=== PATIENT | male | born 1970 | race Two or more races ===

== ENCOUNTER 2024-11-06 21:39 | Emergency (ER) | payer MEDICAID, SELFPAY ==
[2024-11-06 21:40] VITALS: BMI 29.0
--- NOTE | 2024-11-06 22:25 | XR_ITS ---
Examination: Hand, left 3 views Technique: Hand AP, oblique, lateral 3 views Date and time of exam: November 06, 2024 10:30 PM Indications: Patient fell off a ladder 3 days ago with injury to hand, hand pain Findings: Comminuted fractures mid and proximal portion proximal phalanx fourth digit No major offset No dislocation Impression: Acute fractures proximal phalanx fourth digit
--- NOTE | 2024-11-06 23:17 | PD.EDHAND ---
Upper Extremity Injury RME/HPI General Chief Complaint: Hand/Wrist Problems Stated Complaint: L HAND INJURY Time Seen by Provider: 11/06/24 22:20 Arrival date/time: 11/06/24 21:39 This is a case of 54-year-old male with no medical history came in in the emergency room due to left hand pain and fourth digit left hand pain for 2 days history of present illness started last Thursday patient accidentally fell 3 feet tall in a ladder and landed on his left hand sustaining pain and swelling no other injury noted denies any head neck chest or abdominal injury no loss of consciousness Limitations: no limitations Related Data Previous Rx's ?Medication ?Instructions ?Recorded blood sugar diagnostic (Advanced #50 ea 12/17/18 Glucose Meter Test Strips) blood-glucose meter (Advanced #1 ea 12/17/18 Glucose Meter) insulin glargine 100 unit/mL (3 10 unit (0.1 mL) subcut QDAY #15 mL 12/17/18 mL) subcutaneous pen (Lantus Solostar U-100 Insulin) lancets 30 gauge (Easy Comfort #100 ea 12/17/18 Lancets) ondansetron HCl 4 mg tablet 4 mg PO TID PRN nausea and 06/04/21 vomiting #15 tabs aspirin 81 mg capsule 81 mg PO QDAY #30 caps 07/31/23 atorvastatin 80 mg tablet 80 mg PO QDAY #30 tabs 07/31/23 hydrocodone 5 mg-acetaminophen 325 1 tab PO Q6H PRN pain #12 tabs 11/06/24 mg tablet Allergies Allergy/AdvReac Type Severity Reaction Status Date / Time No Known Allergies Allergy Verified 11/06/24 21:44 Review of Systems Review of Systems Systems Reviewed: All systems reviewed, normal except as documented Constitutional Constitutional: Reports system reviewed and no additional complaints, except as documented and Reports as per HPI Cardiovascular Cardiovascular: Reports system reviewed and no additional complaints, except as documented and Reports as per HPI Respiratory Respiratory: Reports system reviewed and no additional complaints, except as documented and Reports as per HPI Gastrointestinal Gastrointestinal: Reports system reviewed and no additional complaints, except as documented and Reports as per HPI Musculoskeletal Musculoskeletal: Reports system reviewed and no additional complaints, except as documented, Reports as per HPI and Reports other (Hand and finger pain) Neurologic Neurologic: Reports system reviewed and no additional complaints, except as documented and Reports as per HPI Past Medical History Past Medical History NEUROLOGIC: 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 CARDIAC: Positive Hypertension; Negative Congestive Heart Failure RESPIRATORY: Positive Pneumonia; Negative Chronic Obstructive Pulmonary Disease (COPD) GASTROINTESTINAL: Positive Gastroesophageal Reflux Disease GENITOURINARY: Negative Renal Disease MUSCULOSKELETAL: Positive Arthritis ENDOCRINE: Positive Diabetes Mellitus Type 2; Negative Diabetes Mellitus Type 1 PSYCHO/SOCIAL: Positive Depression and Anxiety OTHER HISTORY: Negative Cancer Social History SMOKING STATUS: Never smoker SECOND HAND EXPOSURE: No (quit 2 years ago) SUBSTANCE USE: does not use ED Exam General Limitations: Present no limitations General appearance: Present alert, in no apparent distress and other (Patient is awake alert oriented not in distress nontoxic looking well-hydrated well-nourished) Head Head exam: Present atraumatic, normocephalic and normal inspection Eye Eye exam: Present normal appearance, PERRL and EOMI ENT ENT exam: Present normal exam, normal oropharynx and mucous membranes moist Neck Neck exam: Present normal inspection, full ROM and trachea midline; Absent tenderness, meningismus or lymphadenopathy Chest Chest inspection: Present normal inspection and symmetric chest wall rise; Absent tenderness Respiratory Respiratory exam: Present normal lung sounds bilaterally; Absent respiratory distress, wheezes, stridor, accessory muscle use or prolonged expiratory phase Cardiovascular Cardiovascular exam: Present regular rate, normal rhythm and normal heart sounds; Absent bradycardia, tachycardia, irregular rhythm or systolic murmur Abdominal Exam Abdominal exam: Present soft and normal bowel sounds; Absent distention, tenderness, guarding, rebound, rigidity, diminished bowel sounds, hyperactive bowel sounds, hypoactive bowel sounds or organomegaly Extremities Exam Extremities exam: Present normal inspection and full ROM Expanded Upper Extremity Exam Shoulder exam: Present normal inspection and full ROM; Absent tenderness or swelling Arm exam: Present normal inspection and full ROM; Absent tenderness or swelling Elbow exam: Present normal inspection and full ROM; Absent tenderness or swelling Forearm/Wrist exam: Present normal inspection and full ROM; Absent tenderness or swelling Hand exam: Present tenderness, swelling (Mild swelling no snuffbox tenderness) and other (Noted fourth finger swelling tender to touch with some bruising no crepitation no deformity no redness no cellulitis nail intact ROM limited neurovascular intact no signs and symptoms of compartment syndrome nor tendinitis); Absent abrasion, laceration, skin avulsion, ecchymosis, deformity, crepitus, dislocation, erythema, amputation, nail avulsion or subungual hematoma Back Exam Back exam: Present normal inspection and full ROM Neurological Exam Neurological exam: Present alert, oriented X3, CN II-XII intact, normal gait, reflexes normal and other (Awake alert oriented x 4 no focal deficit GCS 15/15 steady gait memory intact no slurring speech no facial droop CN II to XII is normal motor or sensory reflex were all normal in all extremities but negative Babinski); Absent motor sensory deficit Psychiatric Psychiatric exam: Present normal affect and normal mood Skin Skin exam: Present warm, dry, intact and normal color Course Quality Measures none Orders Category Date Time Status Splint / Immobilizer STAT Care 11/06/24 23:12 Active XR hand comp LT min 3V Stat Exams 11/06/24 22:25 Completed HYDROcodone*/APAP 5/325 [Dunning 5/325] Med 11/06/24 23:12 Once 1 tab PO X1 ONE Vital Signs Vital signs: Vital signs stable Extremity Injury MDM Narrative MDM Narrative:: This is a case of 54-year-old male with no medical history came in in the emergency room due to left hand pain and fourth digit left hand pain for 2 days history of present illness started last Thursday patient accidentally fell 3 feet tall in a ladder and landed on his left hand sustaining pain and swelling no other injury noted denies any head neck chest or abdominal injury no loss of consciousness physical examination patient is awake alert oriented not in distress nontoxic looking neurological exam is normal awake alert oriented x 4 no focal deficit GCS 15/15 steady gait patient noted to have moderate tenderness on the fourth digit left hand with mild swelling no crepitation no deformity no redness no cellulitis ROM is limited due to pain nail is intact neurovascular intact patient also noted to have left hand tenderness but mild swelling no crepitation no deformity no snuffbox tenderness ROM intact neurovascular intact neurological exam is normal awake alert oriented x 4 no focal deficit GCS 15/15 steady gait x-ray of the left hand showed a fracture of the mid and proximal phalanx fracture of the fourth digit left hand ulnar gutter splint was applied patient tolerated well the procedure neurovascular intact he is very aware to see an orthopedic surgeon in 2 days for reevaluation and treatment of the finger fracture for any worsening symptoms or any emergent concern he will return in the emergency room immediately or call 911 RICE treatment will continue by the patient at home elevation also as advised patient was prescribed Dunning for severe pain Patient was discharged with comfortable condition walking with stable gait. Patient verbalized no further complains explained diagnosis and answered patient question. Patient is comfortable with the proposed management plan including the need to follow up with his/her primary care physician and any specialist if applicable Discussed patient for any urgent condition or worsening sx, He/She needed to go to emergency room immediately or call 911. Patient acknowledge the responsibility to follow up as instructed and to monitor her/his symptoms. For any persistence of the symptoms for more than 3-5 days return precaution advised. Discussed the result of the test and was given printed discharge instruction Patient data [place] [facility] [place] Clinical information provided by:: none Social determinants that could affect healthcare access:: none Patient has the following chronic illnesses:: None How is presenting disease/condition affected by chronic disease/condition?: no chronic disease Evaluation data The following diagnostics were reviewed and interpreted by me:: radiology exam(s) Lab and/or radiology exams considered but not ordered:: Reviewed Interpretation Summary: Reviewed Medications / Prescriptions Medications or Prescriptions considered but not ordered:: Given Medication administrations:: Medication Administration History Hydrocodone Bitart/Acetaminophen (Hydrocodone/Apap 5/325 Tablet) 1 tab PO X1 ONE Stop: 11/06/24 23:13 Given Consultations Consultation(s) initiated? (list below): No Diagnosis Upper Extremity Injury Differential Diagnosis: other (Finger fracture) Most likely diagnosis given after review of the tests above:: Finger fracture Admission Indicated Admission indicated?: not indicated Explain why admission is indicated or not indicated:: Not indicated Admission Request Was there a request for admission?: No Admission Attestation Admission request attestation: Not indicated Disposition Plan Disposition Plan: Discharge Discharge Attestation Discharge Attestation: The patient and all family members were given an opportunity to ask questions and understood the discharge instructions. Discharge instructions specifically effects, indications for sooner follow up or return to the emergency department, and the expected course of current diagnosis. Patient condition: Stable Discharge Plan Plan Patient Disposition: HOME (Self Care) Patient condition on transfer: Stable Prescriptions/Referrals Prescriptions/Med Rec: New hydrocodone-acetaminophen 5-325 mg tablet 1 tab PO Q6H MDD max 4 tabs per day PRN (Reason: pain) Qty: 12 0RF No Action Lantus Solostar U-100 Insulin 100 unit/mL (3 mL) insulin pen 10 unit SC QDAY Qty: 15 0RF (DME) blood-glucose meter [Advanced Glucose Meter] misc See Dose Instructions .ROUTE .MEDSUPPLY Qty: 1 0RF Dose Instruction: As directed Rx Instructions: As directed (DME) Advanced Gluc Meter Test Strip strip See Dose Instructions .ROUTE .MEDSUPPLY Qty: 50 0RF Dose Instruction: As directed Rx Instructions: As directed (DME) lancets [Easy Comfort Lancets] 30 gauge misc See Dose Instructions .ROUTE .MEDSUPPLY Qty: 100 0RF Dose Instruction: As directed Rx Instructions: As directed ondansetron HCl 4 mg tablet 4 mg PO TID PRN (Reason: nausea and vomiting) Qty: 15 0RF aspirin 81 mg capsule 81 mg PO QDAY Qty: 30 0RF atorvastatin 80 mg tablet 80 mg PO QDAY Qty: 30 0RF Referrals: Haja Killian MD [Primary Care Provider, Family Practice] - In 1 week Problem List Clinical Impression: Hand sprain, Fracture of proximal phalanx of digit of left hand Patient/Caregiver Discharge Instructions Education Materials: ED Fracture, Finger, Closed, ED Splint Care, Fiberglass, ED Hand Sprain, ED RICE Additional Instructions: Follow-up with your primary care physician in 2 days for reevaluation and to be referred to orthopedic surgeon for further evaluation and treatment proximal phalanx fracture of the fourth digit left hand worsening symptoms or any emergent concerns call 911 or go to the nearest emergency room take Dunning for severe pain Motrin for mild to moderate pain elevate to decrease swelling keep the splint in place until cleared by your primary care physician ice pack every 2 hours for 30 minutes for 24 hours then alternate with warm compress is advised Print Language: Honduran Stand Alone Forms: Jane Award Info., Patient Portal Info Letter PA/[employer] Supervising Physician PA/[employer] Supervising Physician: Dr. Tori Wills
[2024-11-06] MEDS: HYDROcodone/APAP 5/325 TABLET 1 TAB PO (23:24)
== END 2024-11-06 23:39 | disposition home or self-care (01) ==
PROVIDERS: Emergency Provider Emergency Medicine; PCP Family Medicine
DX: S62.615A Displaced fracture of proximal phalanx of left ring finger, initial encounter for closed fracture (principal); S63.92XA Sprain of unspecified part of left wrist and hand, initial encounter; W11.XXXA Fall on and from ladder, initial encounter
CPT/HCPCS: 29125; 73130; 99284; A9270